=== PATIENT | male | born 2000 | race African-American/Black ===

== ENCOUNTER 2022-05-02 15:31 | Emergency (ER) | payer SELFPAY ==
[~2022-05-02] VITALS: Ht 175.3 cm; Wt 109.0 kg
[2022-05-02] MEDS ORDERED: AMOX-494 MT (17:07)
[2022-05-02] MEDS ORDERED: IBUP-2030 MT (17:11)
[2022-05-02] MEDS ORDERED: DEXAMETHASONE 1MG TABLET PO ONE (17:15)
[2022-05-02] MEDS ORDERED: DEXAMETHASONE 4MG TABLET PO NR (17:15)
[2022-05-02] MEDS ORDERED: KETOROLAC 60MG/2ML VIAL IM ONE (17:15)
[2022-05-02 17:49] VITALS: BP 150/86
== END 2022-05-02 17:59 | disposition home or self-care (01) ==
LOC: ER 15:31
DX: J02.9 Acute pharyngitis, unspecified (principal)
CPT/HCPCS: 87070; 87430; 96372; 99283; J1885; J8540